=== PATIENT | female | born 1955 ===

== ENCOUNTER 2023-11-07 04:51 | Emergency (ER) | payer MEDICARE ==
[~2023-11-07] VITALS: Ht 149.9 cm; Wt 54.5 kg
[2023-11-07 05:02] VITALS: BP 181/106; PULSE 65; RESP 16; TEMP 97.6
[2023-11-07] MEDS ORDERED: CLON0.1T2 PO (05:13)
[2023-11-07] MEDS ORDERED: METO25 PO (05:13)
[2023-11-07] MEDS ORDERED: LISI-657 PO (05:13)
== END 2023-11-07 06:16 | disposition left against medical advice (07) ==
LOC: EMS 04:52
DX: I10 Essential (primary) hypertension (principal); Z53.21 Procedure and treatment not carried out due to patient leaving prior to being seen by health care provider
CPT/HCPCS: 93005; 99281; Z7502